=== PATIENT | male | born 1955 | race Caucasian/White ===

== ENCOUNTER → 2017-03-06 | Outpatient (CLI) | payer BC ==
[~2017-03-06] MED LIST: Aspirin E.C. PO; BACTRIM DS PO; Coumadin,Jantoven PO; Dulcolax PR; Flexeril PO; Folvite PO; Lortab 7.5/500 PO; METHOTREXATE PO; Neurontin PO; Protonix PO; Ultram ER 100 mg Tab PO; Valium PO; [UNRECOGNIZED DRUG - OTHER] PO
== END | disposition home or self-care (01) ==
LOC: NUC 02-13 07:30
DX: R94.31 Abnormal electrocardiogram [ECG] [EKG] (principal); Z82.49 Family history of ischemic heart disease and other diseases of the circulatory system
CPT/HCPCS: 78452; 93017; A9500; J2785

== ENCOUNTER 2017-07-06 14:09 | Inpatient (IN) | payer BC ==
[~2017-07-06] VITALS: Ht 182.9 cm; Wt 96.0 kg
[~2017-07-06 14:09] MED LIST changes: +ASPIR-LOW81 MG PO; +ATENOLOL100 MG PO; +COLACE100 MG PO; +CRESTOR5 MG PO; +ENDOCET 5-3251 EACH PO; +FLUOXETINE HCL20 M1 PO; +FOLIC ACID1 MG PO; +NAPROSYN500 MG PO; +NEURONTIN600 MG PO; +PEPCID20 MG PO; +PLAVIX75 MG PO; +PROCARDIA XL90 MG PO; +PROTONIX40 MG PO; +TREXALL10 MG PO; +ULTRAM50 MG PO; +VALSARTAN-HCTZ1 EAC2 PO; +XARELTO20 MG PO; +ZANTAC150 MG PO
[2017-07-06 14:20] VITALS: BP 153/73
[2017-07-06 16:39] VITALS: BP 139/65
[2017-07-07 00:39] VITALS: BP 137/62
[2017-07-07 05:28] LABS: HEMOGLOBIN 9.6 G/DL (12.5-16.6); MCH 30.2 PG (29.0-34.0); MCHC 33.1 G/DL (30.0-36.0); MCV 91.2 FL (86-99); PLATELET COUNT 177 K/uL (156-360); RBC DIS.WIDTH-CV 15.1 % (11.8-14.6); RBC DIS.WIDTH-SD 50.2 % (39-53); RED BLOOD COUNT 3.18 M/uL (4.00-5.50)
[2017-07-07 05:46] VITALS: BP 107/55
[2017-07-07 05:52] LABS: ALBUMIN 3.1 G/DL (3.2-4.8); ALKALINE PHOSPHATASE 75 IU/L (3-129); ALT (GPT) 17 IU/L (3-49); AST (GOT) 21 IU/L (2-34); CHLORIDE 105 MEQ/L (99-109); CREATININE 1.5 MG/DL (0.6-1.3); GFR ESTIMATE (CALCULATED) 51 mL/min/ (58.99-99999); GLUCOSE 102 mg/dL (70-99); SODIUM 139 MEQ/L (136-147); TOTAL BILIRUBIN 0.3 MG/DL (0.0-1.0); TOTAL PROTEIN 5.7 G/DL (6.4-8.3); UREA NITROGEN (BUN) 27 mg/dL (9-23)
[2017-07-07 16:03] VITALS: BP 132/66
[2017-07-08 04:40] LABS: HEMATOCRIT 29.3 % (38.0-50.0); MCH 31.3 PG (29.0-34.0); MCHC 34.1 G/DL (30.0-36.0); MCV 91.6 FL (86-99); PLATELET COUNT 191 K/uL (156-360); RBC DIS.WIDTH-CV 15.2 % (11.8-14.6); RBC DIS.WIDTH-SD 50.4 % (39-53); WHITE BLOOD COUNT 7.1 K/uL (4.1-10.2)
[2017-07-08 04:51] LABS: CHLORIDE 107 mEq/L (99-109); POTASSIUM 4.2 mEq/L (3.7-5.4); SODIUM 140 mEq/L (136-147)
[2017-07-08 04:53] LABS: GLUCOSE 136 mg/dL (70-99)
[2017-07-08 04:57] LABS: CREATININE 1.5 mg/dL (0.6-1.3); GFR ESTIMATE (CALCULATED) 51 mL/min/ (58.99-99999)
[2017-07-08 04:58] LABS: UREA NITROGEN (BUN) 28 mg/dL (9-23)
[2017-07-08 05:38] VITALS: BP 122/60
[2017-07-08 15:43] VITALS: BP 126/58
[2017-07-09 04:42] VITALS: BP 109/61
[2017-07-09 15:13] VITALS: BP 111/51
[2017-07-10 05:04] VITALS: BP 133/61
[2017-07-10 15:10] VITALS: BP 108/54
[2017-07-11 06:00] VITALS: BP 134/61
[2017-07-11 16:18] VITALS: BP 116/55
[2017-07-12 05:33] VITALS: BP 105/55
[2017-07-12 15:26] VITALS: BP 112/55
[2017-07-13 05:20] VITALS: BP 118/58
[2017-07-13 16:31] VITALS: BP 116/76
[2017-07-14 05:17] VITALS: BP 98/45
[2017-07-14 15:16] VITALS: BP 152/70
[2017-07-15 05:47] VITALS: BP 120/59
[2017-07-15 16:01] VITALS: BP 108/57
[2017-07-16 05:37] VITALS: BP 103/54
[2017-07-16] MEDS ORDERED: GABAPENTIN400 MG PO (10:11)
[2017-07-16] MEDS ORDERED: SENNA PLUS TAB1 EACH PO (10:11)
[2017-07-16] MEDS ORDERED: FERROUS SULFAT325 MG PO (10:11)
[2017-07-16] MEDS ORDERED: Milk Of Magnesia,MOM PO (10:11)
[2017-07-16] MEDS ORDERED: AVENTYL,PAMELOR25 MG PO (10:11)
[2017-07-16 15:23] VITALS: BP 115/56
== END 2017-07-16 15:56 | DRG 560 ==
LOC: 3WEST 14:09
PROVIDERS: Physical Medicine & Rehabilitation Pain Medicine
PROC: F07M0ZZ Range of Motion and Joint Mobility Treatment of Musculoskeletal System - Whole Body (ICD-10-PCS; principal; 2017-07-06)
DX: Z47.81 Encounter for orthopedic aftercare following surgical amputation (principal); G54.6 Phantom limb syndrome with pain; G89.18 Other acute postprocedural pain; Z89.512 Acquired absence of left leg below knee; D62 Acute posthemorrhagic anemia; E78.5 Hyperlipidemia, unspecified; G89.4 Chronic pain syndrome; M54.9 Dorsalgia, unspecified; M62.838 Other muscle spasm; G62.9 Polyneuropathy, unspecified; D68.59 Other primary thrombophilia; I10 Essential (primary) hypertension; K21.9 Gastro-esophageal reflux disease without esophagitis; K59.00 Constipation, unspecified; M06.9 Rheumatoid arthritis, unspecified; Z86.711 Personal history of pulmonary embolism; Z87.891 Personal history of nicotine dependence; Z79.01 Long term (current) use of anticoagulants; Z79.02 Long term (current) use of antithrombotics/antiplatelets
CPT/HCPCS: 80048; 80053; 82948; 85027; 97110 GO; 97530 GP; J8610